=== PATIENT | female | born 1980 | race Caucasian/White ===

== ENCOUNTER 2018-12-27 13:04 | Inpatient (IN) | payer OTHER ==
[~2018-12-27] VITALS: Ht 177.8 cm; Wt 89.7 kg
[~2018-12-27 13:04] MED LIST: IBUP-1222 PO; OXYC-302 PO
[2018-12-27] MEDS ORDERED: LORazepam 2 MG/ML, 1ML IVPush ONE (13:30)
[2018-12-27] MEDS ORDERED: SODIUM CHLORIDE 0.9% 1,000ML IVBOLUS ONE (13:30)
[2018-12-27] MEDS ORDERED: LORazepam 2 MG/ML, 1ML ONE (13:52)
[2018-12-27 13:57] LABS: BASOPHILS # (AUTO) 0.22 x10^3/uL (0-0.1); BASOPHILS % (AUTO) 2 % (0-1); EOSINOPHILS # (AUTO) 0.11 x10^3/uL (0-0.4); EOSINOPHILS % (AUTO) 1 % (1-7); LYMPHOCYTES % (AUTO) 15 % (22-44); MD NO; MEAN CORPUSCULAR HEMOGLOBIN 31.5 pg (27.0-34.8); MEAN CORPUSCULAR HGB CONC 32.7 g/dL (32.4-35.8); MEAN CORPUSCULAR VOLUME 96.4 fL (80-100); MONOCYTES # (AUTO) 0.75 x10^3/uL (0.2-0.8); MONOCYTES % (AUTO) 6 % (2-9); NEUTROPHILS # (AUTO) 9.43 x10^3/uL (1.8-6.8); NEUTROPHILS % (AUTO) 76 % (42-75); PLATELET COUNT 245 x10^3/uL (130-400); RED CELL DISTRIBUTION WIDTH 13.3 % (9.6-15.2)
--- NOTE | 2018-12-27 14:00 | NUR ---
medicated per mar
[2018-12-27 14:07] LABS: ALANINE AMINOTRANSFERASE 239 U/L (12-78); ALBUMIN 3.3 g/dL (3.4-5.0); ANION GAP 9 mmol/L (5-15); CALCIUM 8.9 mg/dL (8.5-10.1); CHLORIDE 106 mmol/L (98-107); CREATININE 1.14 mg/dL (0.55-1.02)
[2018-12-27 14:11] LABS: ALKALINE PHOSPHATASE 185 U/L (45-117); BILIRUBIN,TOTAL 0.7 mg/dL (0.2-1.0); TOTAL PROTEIN 8.1 g/dL (6.4-8.2); TROPONIN I 0.028 ng/mL (0.000-0.045)
[2018-12-27 14:15] LABS: D-DIMER 15.57 ug/mlFEU (0.00-0.52); INTERNATIONAL NORMALIZED RATIO 0.98 (0.93-1.1); PROTHROMBIN TIME 10.3 Seconds (9.6-11.5)
--- NOTE | 2018-12-27 14:30 | NUR ---
continue to monitor. no complaints at this time
[2018-12-27] MEDS ORDERED: OMNIPAQUE 350 MG/ML, 100ML BOTTLE ONE (15:01)
--- NOTE | 2018-12-27 15:14 | NUR ---
at bedside re-evaluating pt
[2018-12-27] MEDS ORDERED: HEPARIN 5,000 UNITS/ML, 1ML IV ONE (15:30)
[2018-12-27] MEDS ORDERED: HEPARIN 5,000 UNITS/ML, 1ML ONE (15:44)
[2018-12-27] MEDS ORDERED: HEPARIN 25,000 UNITS/500ML PMX 500 ML ONE (15:45)
[2018-12-27] MEDS ORDERED: HEPARIN 25,000 UNITS/500ML PMX 500 ML IV PRN (16:00)
[2018-12-27] MEDS ORDERED: hydrALAzine 20 MG/ML, 1ML IVPush PRN (16:00)
[2018-12-27] MEDS: HEPARIN 25,000 UNITS/500ML PMX 500 ML IV PRN (16:02)
--- NOTE | 2018-12-27 16:03 | NUR ---
HEPARIN BOLUS GIVEN WITH DRIP STARTED. ULTRASOUND AT BEDSIDE
--- NOTE | 2018-12-27 16:15 | NUR ---
REPORT TO GETACHEW RAE
[2018-12-27 17:09] VITALS: BP 121/79
[2018-12-27 20:48] VITALS: BP 107/74
[2018-12-27] MEDS ORDERED: DESO1TAB33 PO (21:24)
[2018-12-27] MEDS: HEPARIN 5,000 UNITS/ML, 1ML IV PRN (22:54)
[2018-12-28 04:00] VITALS: BP 100/65
[2018-12-28 05:43] LABS: BASOPHILS # (AUTO) 0.07 x10^3/uL (0-0.1); BASOPHILS % (AUTO) 1 % (0-1); EOSINOPHILS # (AUTO) 0.23 x10^3/uL (0-0.4); EOSINOPHILS % (AUTO) 3 % (1-7); LYMPHOCYTES # (AUTO) 3.01 x10^3/uL (1-3.4); LYMPHOCYTES % (AUTO) 35 % (22-44); MD NO; MEAN CORPUSCULAR HEMOGLOBIN 32.1 pg (27.0-34.8); MEAN CORPUSCULAR HGB CONC 32.4 g/dL (32.4-35.8); MEAN CORPUSCULAR VOLUME 99.1 fL (80-100); MEAN PLATELET VOLUME 9.6 fL (7.4-10.4); MONOCYTES # (AUTO) 0.52 x10^3/uL (0.2-0.8); MONOCYTES % (AUTO) 6 % (2-9); NEUTROPHILS % (AUTO) 56 % (42-75); PLATELET COUNT 239 x10^3/uL (130-400); RED BLOOD COUNT 4.49 x10^6/uL (3.82-5.3); RED CELL DISTRIBUTION WIDTH 13.3 % (9.6-15.2)
[2018-12-28 05:46] LABS: CHLORIDE 107 mmol/L (98-107)
[2018-12-28] MEDS: HEPARIN 5,000 UNITS/ML, 1ML IV PRN ×2 (05:59→18:46)
[2018-12-28 06:03] LABS: ALANINE AMINOTRANSFERASE 261 U/L (12-78); ALBUMIN 2.8 g/dL (3.4-5.0); ALKALINE PHOSPHATASE 172 U/L (45-117); ANION GAP 8 mmol/L (5-15); BILIRUBIN,TOTAL 0.7 mg/dL (0.2-1.0); CALCIUM 8.6 mg/dL (8.5-10.1); CREATININE 0.83 mg/dL (0.55-1.02); TOTAL PROTEIN 7.1 g/dL (6.4-8.2)
[2018-12-28 06:37] VITALS: BP 110/72
[2018-12-28] MEDS: ACETAMINOPHEN 325 MG TABLET PO PRN ×3 (09:57→23:05)
[2018-12-28 13:14] VITALS: BP 119/78
[2018-12-28] MEDS: HEPARIN 25,000 UNITS/500ML PMX 500 ML IV PRN (14:58)
[2018-12-28 18:21] LABS: ALBUMIN 3.1 g/dL (3.4-5.0); BILIRUBIN, DIRECT 0.4 mg/dL (0.1-0.2)
[2018-12-28 18:23] LABS: BILIRUBIN,INDIRECT 0.6 mg/dL (0.0-2.0)
[2018-12-28 19:17] VITALS: BP 114/77
[2018-12-28] MEDS ORDERED: ONDANSETRON ODT 4 MG ONE (23:25)
[2018-12-28] MEDS ORDERED: ONDANSETRON ODT 4 MG PO PRN (23:30)
[2018-12-29 00:22] VITALS: BP 105/70
[2018-12-29] MEDS: HEPARIN 5,000 UNITS/ML, 1ML IV PRN (01:35)
[2018-12-29 06:45] VITALS: BP 100/68
[2018-12-29] MEDS: HEPARIN 25,000 UNITS/500ML PMX 500 ML IV PRN (09:30)
[2018-12-29] MEDS ORDERED: BUTALB/APAP/CAFFEINE 50MG/325MG/40MG PO PRN (10:30)
[2018-12-29 13:23] VITALS: BP 110/71
[2018-12-29 20:44] VITALS: BP 113/74
[2018-12-30] MEDS ORDERED: OMNIPAQUE 350 MG/ML, 100ML BOTTLE ONE (00:07)
[2018-12-30 01:33] VITALS: BP 111/72
[2018-12-30] MEDS: HEPARIN 25,000 UNITS/500ML PMX 500 ML IV PRN (02:23)
[2018-12-30 05:55] LABS: BASOPHILS # (AUTO) 0.09 x10^3/uL (0-0.1); BASOPHILS % (AUTO) 1 % (0-1); EOSINOPHILS # (AUTO) 0.48 x10^3/uL (0-0.4); EOSINOPHILS % (AUTO) 7 % (1-7); LYMPHOCYTES # (AUTO) 3.09 x10^3/uL (1-3.4); LYMPHOCYTES % (AUTO) 42 % (22-44); MD NO; MEAN CORPUSCULAR HEMOGLOBIN 31.1 pg (27.0-34.8); MEAN CORPUSCULAR HGB CONC 31.8 g/dL (32.4-35.8); MEAN CORPUSCULAR VOLUME 97.8 fL (80-100); MEAN PLATELET VOLUME 8.9 fL (7.4-10.4); MONOCYTES # (AUTO) 0.37 x10^3/uL (0.2-0.8); MONOCYTES % (AUTO) 5 % (2-9); NEUTROPHILS # (AUTO) 3.37 x10^3/uL (1.8-6.8); NEUTROPHILS % (AUTO) 46 % (42-75); PLATELET COUNT 257 x10^3/uL (130-400); RED BLOOD COUNT 4.54 x10^6/uL (3.82-5.3); RED CELL DISTRIBUTION WIDTH 13.1 % (9.6-15.2)
[2018-12-30 06:06] LABS: ALBUMIN 2.7 g/dL (3.4-5.0); ANION GAP 9 mmol/L (5-15); CHLORIDE 105 mmol/L (98-107)
[2018-12-30 06:10] LABS: ALANINE AMINOTRANSFERASE 289 U/L (12-78); ALKALINE PHOSPHATASE 177 U/L (45-117); BILIRUBIN,TOTAL 0.4 mg/dL (0.2-1.0); CREATININE 0.89 mg/dL (0.55-1.02); TOTAL PROTEIN 7.1 g/dL (6.4-8.2)
[2018-12-30 06:30] VITALS: BP 104/71
[2018-12-30] MEDS: RIVAROXABAN 15 MG TABLET PO SCH ×2 (12:23→17:21)
[2018-12-30 12:36] VITALS: BP 100/66
[2018-12-30 19:12] VITALS: BP 106/63
[2018-12-31 00:44] VITALS: BP 113/72
[2018-12-31 05:43] LABS: BASOPHILS # (AUTO) 0.04 x10^3/uL (0-0.1); BASOPHILS % (AUTO) 1 % (0-1); EOSINOPHILS # (AUTO) 0.57 x10^3/uL (0-0.4); EOSINOPHILS % (AUTO) 8 % (1-7); LYMPHOCYTES # (AUTO) 2.47 x10^3/uL (1-3.4); LYMPHOCYTES % (AUTO) 33 % (22-44); MD NO; MEAN CORPUSCULAR HEMOGLOBIN 31.9 pg (27.0-34.8); MEAN CORPUSCULAR HGB CONC 32.6 g/dL (32.4-35.8); MEAN CORPUSCULAR VOLUME 97.8 fL (80-100); MEAN PLATELET VOLUME 9.6 fL (7.4-10.4); MONOCYTES # (AUTO) 0.41 x10^3/uL (0.2-0.8); MONOCYTES % (AUTO) 6 % (2-9); NEUTROPHILS # (AUTO) 3.95 x10^3/uL (1.8-6.8); NEUTROPHILS % (AUTO) 53 % (42-75); PLATELET COUNT 263 x10^3/uL (130-400); RED CELL DISTRIBUTION WIDTH 13.4 % (9.6-15.2)
[2018-12-31 05:51] LABS: CHLORIDE 107 mmol/L (98-107)
[2018-12-31 05:59] LABS: ALANINE AMINOTRANSFERASE 275 U/L (12-78); ALBUMIN 2.8 g/dL (3.4-5.0); ALKALINE PHOSPHATASE 182 U/L (45-117); ANION GAP 8 mmol/L (5-15); BILIRUBIN,TOTAL 0.4 mg/dL (0.2-1.0); CALCIUM 8.8 mg/dL (8.5-10.1); CREATININE 0.87 mg/dL (0.55-1.02); TOTAL PROTEIN 7.1 g/dL (6.4-8.2)
[2018-12-31 06:48] VITALS: BP 100/66
[2018-12-31] MEDS: RIVAROXABAN 15 MG TABLET PO SCH (07:41)
[2018-12-31] MEDS ORDERED: RIVA15TA PO (08:00)
[2018-12-31] MEDS ORDERED: RIVA20TA PO (08:00)
== END 2018-12-31 09:40 | disposition home or self-care (01) | DRG 175 ==
LOC: ED 14:28 → EDIP 15:43 → 4EST 16:57 → DCLOUNGE 12-31 09:30
PROVIDERS: ADMIT Family Medicine; ATTEND Family Medicine
DX: I26.99 Other pulmonary embolism without acute cor pulmonale (principal); J96.01 Acute respiratory failure with hypoxia; J96.02 Acute respiratory failure with hypercapnia; F17.200 Nicotine dependence, unspecified, uncomplicated; F41.1 Generalized anxiety disorder; G43.909 Migraine, unspecified, not intractable, without status migrainosus; I11.9 Hypertensive heart disease without heart failure; I37.1 Nonrheumatic pulmonary valve insufficiency; K75.9 Inflammatory liver disease, unspecified; Z79.01 Long term (current) use of anticoagulants; Z79.899 Other long term (current) drug therapy
CPT/HCPCS: 36415; 71045; 71275; 74160; 76700; 80053; 80074; 80076; 84443; 84484; 84703; 85025; 85379; 85520; 85610; 85730; 93005; 93306; 93970; 96374; 99291; G0378; J1644; Q0162; Q9967; J2060; J7030